=== PATIENT | female | born 1930 | race Caucasian/White ===

== ENCOUNTER 2017-02-04 10:21 | Emergency (ER) | payer MEDICAID, OTHER ==
[~2017-02-04] VITALS: Ht 165.1 cm; Wt 75.0 kg
[~2017-02-04 10:21] MED LIST: ALEN70TA69 PO; AMLO5TAB66 PO; ASPI-891 PO; ATOR20TA86 PO; BETA1TAB PO; CALC500T62 PO; DONE10TA36 PO; GINK60CA2 PO; LEVO75TA4 PO; LOSA100T29 PO; MEMA28CA PO; SERT100T PO
[2017-02-04] MEDS ORDERED: ALBU8.5H8 IH (10:31)
[2017-02-04] MEDS ORDERED: ESCI20TA PO (10:31)
[2017-02-04] MEDS ORDERED: MECL-111 PO (10:31)
[2017-02-04] MEDS ORDERED: DONE10TA8 PO (10:31)
[2017-02-04] MEDS ORDERED: LORA10TA7 PO (10:31)
[2017-02-04 11:27] VITALS: BP 130/78
== END 2017-02-04 11:32 | disposition home or self-care (01) ==
LOC: EMS 10:22
DX: J45.909 Unspecified asthma, uncomplicated (principal); J11.1 Influenza due to unidentified influenza virus with other respiratory manifestations; I10 Essential (primary) hypertension; E03.9 Hypothyroidism, unspecified; Z79.82 Long term (current) use of aspirin; Z88.5 Allergy status to narcotic agent
CPT/HCPCS: 99283